=== PATIENT | male | born 2005 | race African-American/Black ===

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

== ENCOUNTER 2024-01-15 10:50 | Emergency (ER) | payer OTHER | END 2024-01-15 11:42 | disposition home or self-care (01) | LOC: ERS 10:50 | DX: L30.9 Dermatitis, unspecified (principal) | CPT/HCPCS: 99282 ==

== ENCOUNTER 2024-04-11 18:51 | Emergency (ER) | payer OTHER ==
[2024-04-11 21:17] LABS: #Basophils 0.05 10x3/uL (0.0-0.2); %Basophils 0.5 % (0.0-1.0); %Eosinophils 9.7 % (0.0-10.0); %Lymphocytes 22.2 % (21.0-51.0); %Monocytes 8.7 % (0.0-10.0); %Neutrophils 58.6 % (42.0-75.0); Hematocrit 40.2 % (42.0-52.0); Hemoglobin 12.9 g/dL (14.0-18.0); Mean Corpuscular HGB CONC 32.1 g/dL (32.0-36.0); Mean Corpuscular Hemoglobin 25.4 pg (27.0-31.0); Mean Corpuscular Volume 79.3 fL (78.0-98.0); Mean Platelet Volume 9.1 fL (7.4-10.4); Platelet Count 487 10x3/uL (130-400); RBC Distribution Width 14.9 % (11.5-14.5); Red Blood Cell (RBC) Count 5.07 mill/uL (4.70-6.10)
[2024-04-11 21:39] LABS: ALT (SGPT) 17 U/L (8-55); AST (SGOT) 15 U/L (5-34); Albumin 4.1 g/dL (3.5-5.0); Alkaline Phosphatase 54 U/L (40-110); Anion Gap 13 mmol/L (10-20); BUN (Urea Nitrogen) 10 mg/dL (8.9-20.6); Bilirubin, Total 0.8 mg/dL (0.2-1.2); Calc. Creatinine Clearance 0 mL/min (70-130); Calcium 9.8 mg/dL (7.8-10.44); Carbon Dioxide 24 mmol/L (22-29); Chloride 107 mmol/L (98-107); Estimated GFR 107; Glucose 92 mg/dL (70-105); Potassium 3.3 mmol/L (3.5-5.1); Protein, Total 8.1 g/dL (6.0-8.3); Sodium 141 mmol/L (136-145)
[2024-04-11 21:45] LABS: INR-International Normal Ratio 1.1; Prothrombin Time 14.2 sec (12.0-14.7)
[2024-04-11 21:46] LABS: PTT 85.2 sec (22.9-36.1)
[2024-04-11] MEDS ORDERED: VWF IVPB SCH (22:00)
[2024-04-11] MEDS ORDERED: ADMIXTURE FEE IVPB SCH (22:00)
[2024-04-11] MEDS ORDERED: ANTIHEMOPHILIC FACTOR IVPB SCH (22:00)
[2024-04-11] MEDS ORDERED: Acetaminophen 500 MG TAB ONE (22:30)
[2024-04-12] MEDS ORDERED: ANTIHEMOPHILIC FACTOR IVPB SCH (01:30)
[2024-04-12] MEDS ORDERED: ADMIXTURE FEE IVPB SCH (01:30)
[2024-04-12] MEDS ORDERED: VWF IVPB SCH (01:30)
== END 2024-04-12 01:30 | disposition home or self-care (01) ==
LOC: ERS 18:51
DX: S80.11XA Contusion of right lower leg, initial encounter (principal); D66 Hereditary factor VIII deficiency; Z55.6 Problems related to health literacy; X58.XXXA Exposure to other specified factors, initial encounter
CPT/HCPCS: 36415; 80053; 85025; 85610; 85730; 86850; 86900; 86901; 96365; 96376; J7187

== ENCOUNTER 2024-04-26 14:36 | Emergency (ER) | payer OTHER ==
[2024-04-26 15:51] LABS: Hematocrit 39.8 % (42.0-52.0); Hemoglobin 12.7 g/dL (14.0-18.0); Mean Corpuscular HGB CONC 31.9 g/dL (32.0-36.0); Mean Corpuscular Hemoglobin 25.1 pg (27.0-31.0); Mean Corpuscular Volume 78.8 fL (78.0-98.0); Mean Platelet Volume 9.6 fL (7.4-10.4); Platelet Count 238 10x3/uL (130-400); RBC Distribution Width 15.2 % (11.5-14.5); Red Blood Cell (RBC) Count 5.05 mill/uL (4.70-6.10)
[2024-04-26 16:04] LABS: Prothrombin Time 13.6 sec (12.0-14.7)
[2024-04-26 16:06] LABS: PTT 90.2 sec (22.9-36.1)
[2024-04-26 16:14] LABS: ALT (SGPT) 15 U/L (8-55); AST (SGOT) 18 U/L (5-34); Alkaline Phosphatase 61 U/L (40-110); Anion Gap 11 mmol/L (10-20); BUN (Urea Nitrogen) 11 mg/dL (8.9-20.6); Band 5 % (5-11); Bilirubin, Total 0.6 mg/dL (0.2-1.2); Calc. Creatinine Clearance 0 mL/min (70-130); Calcium 9.8 mg/dL (7.8-10.44); Carbon Dioxide 24 mmol/L (22-29); Chloride 108 mmol/L (98-107); Eosinophils 6 % (0-10); Estimated GFR 120; Globulin 3.8 g/dL (2.4-3.5); Glucose 83 mg/dL (70-105); Lymphocytes 9 % (21-51); Microcytosis SLIGHT = 6-15 cells HPF (0-5); Monocytes 10 % (0-10); Neutrophil 65 % (42-75); Platelet Adequacy Comment Platelets Normal; Polychromasia SLIGHT = 2-3 cells HPF (0-2); Potassium 3.6 mmol/L (3.5-5.1); Protein, Total 7.8 g/dL (6.0-8.3); Reactive Lymphocytes 4 % (0-10); Sodium 139 mmol/L (136-145)
[2024-04-26] MEDS ORDERED: Morphine 4 MG/ML VIAL ONE (16:44)
[2024-04-26] MEDS ORDERED: [UNRECOGNIZED DRUG - OTHER] IV SCH (18:00)
[2024-04-26] MEDS ORDERED: Ipratropium/Albuterol 3 ML NEB ONE (18:55)
== END 2024-04-26 20:46 | disposition home or self-care (01) ==
LOC: ERS 14:36
DX: D66 Hereditary factor VIII deficiency (principal); J45.901 Unspecified asthma with (acute) exacerbation; M79.671 Pain in right foot; M25.551 Pain in right hip
CPT/HCPCS: 36415; 71045; 80053; 85025; 85610; 85730; 96374; J2270; J7620

== ENCOUNTER 2024-07-30 10:49 | Emergency (ER) | payer OTHER ==
[2024-07-30] MEDS ORDERED: Dexamethasone 10 MG/ML VIAL ONE (12:15)
[2024-07-30] MEDS ORDERED: Acetaminophen 500 MG TAB ONE (12:15)
== END 2024-07-30 13:38 | disposition home or self-care (01) ==
LOC: ERS 10:49
DX: B34.9 Viral infection, unspecified (principal); J45.909 Unspecified asthma, uncomplicated; F17.290 Nicotine dependence, other tobacco product, uncomplicated
CPT/HCPCS: 71045; 87081; 87430; J1100

== ENCOUNTER 2024-08-03 08:09 | Outpatient (CLI) | payer OTHER ==
[2024-08-03] MEDS ORDERED: Iopamidol 370 76% 100 ML VIAL ONE (11:28)
== END 2024-08-03 08:10 | disposition home or self-care (01) ==
LOC: CT 08:09
PROVIDERS: ATTEND Nurse Practitioner Primary Care
DX: S25.301 Unspecified injury of right innominate or subclavian vein (principal); D66 Hereditary factor VIII deficiency; R60.9 Edema, unspecified; R91.1 Solitary pulmonary nodule; Z95.828 Presence of other vascular implants and grafts
CPT/HCPCS: 71275; Q9967

== ENCOUNTER 2024-09-16 15:57 | Emergency (ER) | payer OTHER ==
[2024-09-16] MEDS ORDERED: VWF IVPB SCH (18:00)
[2024-09-16] MEDS ORDERED: ANTIHEMOPHILIC FACTOR IVPB SCH (18:00)
[2024-09-16] MEDS ORDERED: ADMIXTURE FEE IVPB SCH (18:00)
[2024-09-16] MEDS ORDERED: Morphine 2 MG/ML VIAL ONE (19:21)
== END 2024-09-16 20:55 | disposition home or self-care (01) ==
LOC: ERS 15:57
DX: M25.00 Hemarthrosis, unspecified joint (principal); D66 Hereditary factor VIII deficiency; J45.909 Unspecified asthma, uncomplicated; F90.9 Attention-deficit hyperactivity disorder, unspecified type; F17.290 Nicotine dependence, other tobacco product, uncomplicated; X50.1XXA Overexertion from prolonged static or awkward postures, initial encounter; Y93.67 Activity, basketball; Z79.51 Long term (current) use of inhaled steroids
CPT/HCPCS: 96374; 96375; J2272; J7187

== ENCOUNTER 2024-09-20 19:53 | Emergency (ER) | payer OTHER ==
[2024-09-20] MEDS ORDERED: Ondansetron PF 4 MG/2 ML Vial ONE (20:43)
[2024-09-20] MEDS ORDERED: Morphine 4 MG/ML VIAL ONE ×2 (20:43→22:30)
[2024-09-20] MEDS ORDERED: VWF IVPB SCH (21:00)
[2024-09-20] MEDS ORDERED: ADMIXTURE FEE IVPB SCH (21:00)
[2024-09-20] MEDS ORDERED: ANTIHEMOPHILIC FACTOR IVPB SCH (21:00)
[2024-09-20 21:21] LABS: #Basophils 0.07 10x3/uL (0.0-0.2); %Basophils 0.4 % (0.0-1.0); %Eosinophils 1.7 % (0.0-10.0); %Monocytes 6.6 % (0.0-10.0); %Neutrophils 84.7 % (42.0-75.0); Hematocrit 38.6 % (42.0-52.0); Hemoglobin 12.7 g/dL (14.0-18.0); Mean Corpuscular HGB CONC 32.9 g/dL (32.0-36.0); Mean Corpuscular Hemoglobin 25.1 pg (27.0-31.0); Mean Corpuscular Volume 76.3 fL (78.0-98.0); Mean Platelet Volume 9.5 fL (7.4-10.4); Platelet Count 318 10x3/uL (130-400); RBC Distribution Width 15.4 % (11.5-14.5); Red Blood Cell (RBC) Count 5.06 mill/uL (4.70-6.10)
[2024-09-20 21:38] LABS: ALT (SGPT) 15 U/L (8-55); AST (SGOT) 18 U/L (5-34); Albumin 4.3 g/dL (3.5-5.0); Alkaline Phosphatase 62 U/L (40-110); Anion Gap 14 mmol/L (10-20); BUN (Urea Nitrogen) 11 mg/dL (8.9-20.6); Bilirubin, Total 0.8 mg/dL (0.2-1.2); Calc. Creatinine Clearance 0 mL/min (70-130); Calcium 9.4 mg/dL (7.8-10.44); Carbon Dioxide 23 mmol/L (22-29); Chloride 104 mmol/L (98-107); Estimated GFR 127; Globulin 3.9 g/dL (2.4-3.5); Glucose 115 mg/dL (70-105); Potassium 3.5 mmol/L (3.5-5.1); Protein, Total 8.2 g/dL (6.0-8.3); Sodium 137 mmol/L (136-145)
[2024-09-20] MEDS ORDERED: Acetaminophen 500 MG TAB ONE (22:30)
[2024-09-21] MEDS ORDERED: Morphine 4 MG/ML VIAL ONE (10:21)
== END 2024-09-21 17:43 | disposition home or self-care (01) ==
LOC: ERS 19:53
DX: S83.92XA Sprain of unspecified site of left knee, initial encounter (principal); I10 Essential (primary) hypertension; D66 Hereditary factor VIII deficiency; F17.290 Nicotine dependence, other tobacco product, uncomplicated; Z55.6 Problems related to health literacy; W19.XXXA Unspecified fall, initial encounter
CPT/HCPCS: 36415; 70450; 80053; 85025; 93005; 96374; 96375; 96376; J2272; J2405; J7187

== ENCOUNTER 2024-12-05 17:53 | Emergency (ER) | payer OTHER ==
[2024-12-05 19:54] LABS: #Basophils 0.04 10x3/uL (0.0-0.2); %Basophils 0.5 % (0.0-1.0); %Eosinophils 10.1 % (0.0-10.0); %Monocytes 12.8 % (0.0-10.0); %Neutrophils 57.4 % (42.0-75.0); Hematocrit 33.9 % (42.0-52.0); Mean Corpuscular HGB CONC 32.4 g/dL (32.0-36.0); Mean Corpuscular Hemoglobin 24.7 pg (27.0-31.0); Mean Corpuscular Volume 76.2 fL (78.0-98.0); Mean Platelet Volume 9.7 fL (7.4-10.4); Platelet Count 368 10x3/uL (130-400); RBC Distribution Width 15.8 % (11.5-14.5); Red Blood Cell (RBC) Count 4.45 mill/uL (4.70-6.10)
[2024-12-05 20:07] LABS: INR-International Normal Ratio 1.1; Prothrombin Time 14.4 sec (12.0-14.7)
[2024-12-05 20:09] LABS: ALT (SGPT) 11 U/L (Less than 45); AST (SGOT) 22 U/L (11-34); Albumin 4.1 g/dL (3.1-4.5); Alkaline Phosphatase 61 U/L (40-110); Anion Gap 13 mmol/L (10-20); BUN (Urea Nitrogen) 8 mg/dL (8.9-20.6); Calc. Creatinine Clearance 0 mL/min (70-130); Calcium 9.2 mg/dL (7.8-10.44); Carbon Dioxide 24 mmol/L (22-29); Chloride 105 mmol/L (98-107); Estimated GFR 111; Globulin 3.8 g/dL (2.4-3.5); Glucose 90 mg/dL (70-105); Potassium 3.6 mmol/L (3.5-5.1); Protein, Total 7.9 g/dL (6.0-8.3); Sodium 138 mmol/L (136-145)
[2024-12-05] MEDS ORDERED: Water For Inject, Bacteriostat 30 ML ONE ×2 (21:26→21:50)
== END 2024-12-05 22:00 | disposition home or self-care (01) ==
LOC: ERS 17:53
DX: D66 Hereditary factor VIII deficiency (principal); K06.8 Other specified disorders of gingiva and edentulous alveolar ridge; F17.290 Nicotine dependence, other tobacco product, uncomplicated
CPT/HCPCS: 80053; 85025; 85610; 96374; J7187

== ENCOUNTER 2025-05-04 18:00 | Emergency (ER) | payer MEDICAID | END 2025-05-04 19:35 | disposition home or self-care (01) | LOC: ERS 18:00 | DX: Z76.0 Encounter for issue of repeat prescription (principal); D66 Hereditary factor VIII deficiency | CPT/HCPCS: 96374 ==